=== PATIENT | female | born 1980 ===

== ENCOUNTER 2024-01-26 07:36 | Outpatient (CLI) | payer OTHER ==
[~2024-01-26] VITALS: Ht 157.5 cm; Wt 98.8 kg
[~2024-01-26 07:36] MED LIST: BACTRIM DS 8001 TAB PO; ZOFRAN ODT4 MG PO
[2024-01-26 07:58] VITALS: BP 120/78; PULSE 70; TEMP 98.8
[2024-01-26] MEDS ORDERED: PRILOTC PO (08:00)
[2024-01-26] MEDS ORDERED: IRON TABLETS325 MG PO (08:00)
[2024-01-26] MEDS ORDERED: Cosyntropin 0.25 MG in NS 5 ML IV ONE (08:00)
--- NOTE | 2024-01-26 09:45 | NUR ---
IV DC'd, site wrapped with coban. She is free of complaints, and exits dept with steady gait.
[2024-01-30 00:08] LABS: ADRENOCORTICOTROPIC HORMONE 16 pg/mL (5-27)
== END 2024-01-26 09:45 | disposition home or self-care (01) ==
LOC: EUO 07:36
PROVIDERS: Internal Medicine Interventional Cardiology
DX: R42 Dizziness and giddiness (principal)
CPT/HCPCS: J0834